=== PATIENT | female | born 1950 | race Caucasian/White ===

== ENCOUNTER → 2017-09-17 | Outpatient (CLI) | payer OTHER ==
[2017-09-17 09:41] LABS: BLOOD GAS BASE EXCESS -0.7 mmol/L (-2-2); BLOOD GAS CARBOXYHEMOGLOBIN 1.8 % (0-4); BLOOD GAS HCO3 23 mmol/L (22-26); BLOOD GAS O2 HGB SATURATION 94 % (90-100); BLOOD GAS OXYGEN CONTENT 18.2 Vol % (12.0-20.0); BLOOD GAS PCO2 34 mmHg (38-42); BLOOD GAS PO2 84 mmHg (61-120); BLOOD GAS TOTAL HGB 13.8 G/DL (12.0-16.0); CRITICAL VALUE NO; DRAW SITE RT RADIAL; FIO2 21 %; NUMBER OF ARTERIAL PUNCTURES 1; TEMP CORR TO 98.6; ULNAR PULSE PRESENT
[2017-09-17 09:42] LABS: STAT NO
--- NOTE | 2017-09-22 09:12 | RSPPFT ---
DATE OF PROCEDURE: 09/17/17 COMMENTS: Spirometry shows FVC of 2.7 at 96% of predicted, FEV1 of 2.0 at 87%, FEV1/FVC ratio is normal. Flow is normal at FEF 25, FEF 50, FEF 75 and FEF 25-75. There is a good response after acutely inhaled bronchodilator treatment. Lung volumes show residual volume is normal. TLC is normal. Diffusion capacity is mildly decreased. Flow volume loop indicates terminal airways obstruction. Room air arterial blood gases show pH of 7.44, PCO2 of 34, PO2 of 84, BiCarb of 23 and O2 Saturation of 92%. IMPRESSION: 1. Mild small airways obstructive lung disease. 2. Good response after bronchodilator treatment. 3. Lung volumes are normal. 4. Mild decrease in diffusion capacity. 5. Blood gases show normal oxygenation on room air.
== END ==
LOC: HRSP 08:52
PROVIDERS: ATTEND Specialist
DX: J44.9 Chronic obstructive pulmonary disease, unspecified (principal)
CPT/HCPCS: 36600; 82805; 94060; 94726; 94729